=== PATIENT | female | born 1950 | race Caucasian/White ===

== ENCOUNTER 2016-11-08 00:10 | Observation (INO) ==
[2016-11-08] MEDS ORDERED: LABETALOL IV ONE (00:33)
[2016-11-08] MEDS ORDERED: ASPIRIN PO STA (00:33)
[2016-11-08 01:05] LABS: MANUAL DIFF NEEDED? NO
[2016-11-08 01:10] LABS: BASO% 0.1 % (0.0-0.8); EOS# 0.03 X1000 (0.0-0.7); EOS% 0.3 % (0.0-10.0); HEMATOCRIT 43.1 % (37.0-47.0); HEMOGLOBIN 14.8 g/dL (12.0-16.0); IMM GRAN# 0.02 X1000 (0.0-0.04); IMM GRAN% 0.2 % (0.0-0.5); LYMPH# 1.48 X1000 (1.2-3.4); MCH 27.5 PG (27-31); MCHC 34.3 g/dL (33-37); MCV 80.1 FL (81-99); MONO# 0.61 X1000 (0.11-0.59); MONO% 6.6 % (1.7-9.3); MPV 10.4 FL (7.4-10.4); NEUT% 76.8 % (42.2-75.2); PLT 235 X1000 (130-400); RBC 5.38 XMIL (4.2-5.4)
[2016-11-08 01:20] LABS: INR 0.98; PROTIME 10.3 Seconds (9.2-11.7); PTT 24.2 Seconds (22.0-36.0)
[2016-11-08] MEDS ORDERED: ZOFRAN IV ONE (01:22)
[2016-11-08] MEDS ORDERED: MORPHINE IV ONE (01:24)
[2016-11-08 01:53] LABS: AGAP 21; ALBUMIN 4.1 g/dL (3.5-5.0); ALKALINE PHOSPHATASE 122 U/L (32-104); BUN 14 mg/dL (8-22); CALCIUM 10.3 mg/dL (8.8-10.2); CHLORIDE 99 mmol/L (98-107); CK PROFILE 112 U/L (24-173); COSMO 287; GOT 17 U/L (10-30); GPT 14 U/L (10-36); MAGNESIUM 1.5 mg/dL (1.5-2.7); SODIUM 142 mmol/L (136-145); TCO2 22 mmol/L (25-35); TOTAL BILIRUBIN 0.41 mg/dL (0.20-1.00); TOTAL PROTEIN 6.5 g/dL (6.3-8.3)
[2016-11-08 01:57] LABS: URINE CULTURE NEEDED? NO; URINE MICRO REVIEW NEEDED? NO; URINE SOURCE CLEAN CATCH
[2016-11-08 02:01] LABS: BILIRUBIN URINE NEGATIVE (NEGATIVE); BLOOD URINE NEGATIVE (NEGATIVE); COLOR YELLOW; GLUCOSE URINE NEGATIVE (NEGATIVE); LEUKOCYTES URINE NEGATIVE (NEGATIVE); NITRITE URINE NEGATIVE (NEGATIVE); PROTEIN URINE NEGATIVE (NEGATIVE); SP GRAVITY URINE 1.007; TURBIDITY URINE CLEAR (CLEAR); UR EPITHELIAL CELLS <10 /HPF (<10); URINE BACTERIA NEGATIVE /HPF; URINE RBC <10 /HPF (<10); URINE WBC <10 /HPF (<10); UROBILINOGEN URINE NORMAL (NORMAL)
[2016-11-08 02:10] LABS: UR AMPHETAMINES QUAL NONE DETECTED (NONE DETECT); UR BARBITUATES QUAL NONE DETECTED (NONE DETECT); UR BENZODIAZEPIN QUAL NONE DETECTED (NONE DETECT); UR CANNABINOIDS QUAL NONE DETECTED (NONE DETECT); UR COCAINE QUAL NONE DETECTED (NONE DETECT); UR METHADONE QUAL NONE DETECTED (NONE DETECT); UR OPIATES QUAL NONE DETECTED (NONE DETECT); UR OXYCODONE QUAL NONE DETECTED (NONE DETECT); UR PCP QUAL NONE DETECTED (NONE DETECT)
[2016-11-08] MEDS ORDERED: G.I. COCKTAIL PO ONE (04:16)
[2016-11-08] MEDS ORDERED: PROTONIX IV ONE (04:16)
[2016-11-08] MEDS ORDERED: SODIUM CHLORIDE 0.9% INJ ONE ×2 (04:16→08:54)
--- NOTE | 2016-11-08 06:23 | PROVIDER DOCUMENTATION ---
This chart was entered by Harish Easley Scribe, acting as scribe for Guzman Hill MD. 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 Pt reports that she is unsure why she fell, but fell onto her left knee and then fell onto the floor. Pt denies any pain on exam, but states that she "just don' t feel right" and told her son that she needs to go to the doctor. Pt reports that she has felt "bad" for the past week and has been lying on her couch all week. Pt also complains of a chest pressure and bilateral plantar "feels funny" but cannot give details/specifications. 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 Location of Pain/Injury: reports: none Pain Radiation: reports: no radiation Quality of Pain: reports: none Severity: reports: mild Onset/Duration: reports: unsure, just prior to arrival Timing: reports: still present, resolved prior to arrival Associated Symptoms: reports: chest pain ("chest pressure"), fatigue, shortness of breath, vomiting (1 week ago). denies: cough, diaphoresis, diarrhea, fever/ chills, headaches, heartburn, loss of appetite, muscle aches, nausea, syncope, weakness, trouble walking Similar Symptoms Previously?: No Recently seen or treated by another doctor?: Yes Review of Systems - Adult - REVIEW OF SYSTEMS - ADULT Constitutional: denies: chills, fever, fatique, night sweats, weight gain, weight loss Eyes: reports: no symptoms reported Ears, Nose, Mouth & Throat: reports: no symptoms reported Cardiovascular: reports: chest pain ("chest pressure"). denies: irregular heart rate, palpitations, poor circulation, syncope Respiratory: reports: shortness of breath. denies: chronic cough, cough, dyspnea on exertion, excessive sputum production, hemoptysis, pleurisy, wheezing Gastrointestinal: reports: abdominal pain, diarrhea (1 week ago), vomiting (1 week ago). denies: hematemesis, constipation, difficulty swallowing, frequent heartburn, nausea, poor appetite Genitourinary: reports: no symptoms reported Musculoskeletal: denies: bone pain, back pain, frequent leg cramps, joint pain, joint swelling, muscle aches, muscle weakness, neck pain Integumentary: reports: no symptoms reported Neurological: reports: no symptoms reported Psychiatric: reports: no symptoms reported Endocrine: reports: no symptoms reported Hematologic/Lymphatic: reports: no symptoms reported Allergic/Immunologic: reports: no symptoms reported All Other Systems: Reviewed and Negative Past History - Adult - PAST MEDICAL HISTORY-ADULT Review of Records: reports: Nursing Assessment Review, Medications Reviewed Cardiovascular: reports: arrhythmia, HTN, heart valve problem (mitral valve prolapse), murmur - IMMUNIZATION STATUS Childhood Immunizations: See Nurse Assessment Flu Vaccine: See Nurse Assessment Physical Exam-General - PHYSICAL EXAM-ADULT Initial Vital Signs Reviewed: Yes - CONSTITUTIONAL General Appearance: appears well, alert, mild distress, obese, anxious - EYES Eyes: PERRL/EOMI, pink conjunctivae - HEAD, EARS, NOSE, MOUTH & THROAT HENMT: moist mucous membranes, pharynx normal - RESPIRATORY Respiratory: chest non-tender, lungs clear, normal breath sounds, no pleuratic chest pain, no respiratory distress, no accessory muscle use. negative: respiratory distress, decreased breath sounds, accessory muscle use, wheezing - CARDIOVASCULAR Cardiovascular: normal peripheral pulses, regular rate, rhythm, other (HTN (158/ 126)). negative: bradycardia, tachycardia, irregularly irregular - GASTROINTESTINAL (ABDOMEN) Abdominal Exam: normal bowel sounds, soft, no organomegaly, no pulsatile mass, tenderness (LLQ). negative: non tender, guarding, rebound - MUSCULOSKELETAL Back Exam: no CVA tenderness, no vertebral tenderness. negative: CVA tenderness , vertebral tenderness - PSYCHIATRIC Psych/Mental Status: normal mood/affect, normal thought content, normal thought process, oriented x 3, anxious Progress - PLAN OF CARE/RESULTS Progress/Plan/Lab Results: Vital Signs - 8 hr 06// 00:20 Temperature 98.2 F Pulse Rate 94 H Respiratory Rate 17 Blood Pressure 150/120 O2 Sat by Pulse Oximetry 100 Orders Category Date Time Status EKG [EKG] Stat Ther 11/08/16 00:09 Ordered Result Diagrams: 11/08/16 00:34 11/08/16 00:34 - EKG 1 Time of EKG reading by physician:: 00:32 EKG Read and Signed by:: Guzman Hill EKG Interpretation (*Must complete 3 of following elements*): Abnormal (L axis deviation; LBBB) Rate: 96 Rhythm: NSR - XRAY 1 XRAY: Bilateral XRAY Study: Chest Impression: See EMR Report XRAY Interpretation: No acute abnormality - Dr. Hill - CT/MRI 1 CT Study: Angiogram Impression: Abnormal (NO THORACIC DISSECTION, NO PE, has dilitation of distal esophagus with wall thickening) - CONSULTS/PCP/HOSPITALIST Notification #1 *Consult/PCP/Hospitalist*: [place] Time Discussed: 06:21 (will write all orders) Consult Disposition: Will see in ED, Admit Departure - Departure Date of Disposition Decision: 11/08/16 Time of Disposition Decision: 06:22 DIAGNOSIS: Esophagitis, Orthostasis, Hypotension, iatrogenic Disposition: ADMITTED INPATIENT 09 Certified Medical Emergency: Emergent Condition: Good Referrals and Follow-Ups: None,PCP [Primary Care Provider] - - Critical Care Note This patient required my direct & personal management of CC.: No This chart was documented by the indicated scribe, (Harish Easley Scribe) and accurately reflects the services I performed and decisions made by me, Guzman Hill MD, as attested by the provider's signature.
--- NOTE | 2016-11-08 06:40 | EKG Report ---
Test Performed on : 11/08/2016 00:17:07 AM Test Reason : cp Blood Pressure : / mmHG Vent. Rate : 096 BPM Atrial Rate : 096 BPM P-R Int : 176 ms QRS Dur : 148 ms QT Int : 416 ms P-R-T Axes : 000 -37 104 degrees QTc Int : 525 ms Normal sinus rhythm. Left axis deviation Left bundle branch block Abnormal ECG When compared with ECG of 26-FEB-2008 11:24, NH interval has decreased Left bundle branch block is now present Unconfirmed Result
--- NOTE | 2016-11-08 07:21 | Diag Imaging Result Doc PS360 ---
EXAM: CHEST-1 VIEW HISTORY: CP, SOB TECHNIQUE: Erect AP portable chest at 0055 COMMENT: There is no evidence of acute cardiac or pulmonary disease. There are no previous studies available for comparison. IMPRESSION: No acute disease. Electronically signed by Adalberto Jiménez 11/08/2016 7:18 AM
--- NOTE | 2016-11-08 07:42 | Diag Imaging Result Doc PS360 ---
EXAM: ANGIOGRAM/PULMONARY ARTERIES INDICATION: difficulty breathing, left arm swollen COMPARISON: None. FINDINGS: There is no evidence of pulmonary embolism. There is trace thoracic aortic atherosclerotic calcification. There is no evidence of aortic aneurysm or dissection. There is a tiny hiatal hernia. There are few calcified mediastinal and left hilar lymph nodes indicating prior granulomatous disease. There is no evidence of significant lymphadenopathy, otherwise. There are a few calcified granulomata in the left upper lobe. There are couple noncalcified nodules in the right lung that are subcentimeter in size. For reference, there is nodule on image 31 of series 5 that measures up to 5.3 mm in the right upper lobe, and there is another pleural-based nodule measuring up to 5 mm in the right middle lobe on image 82 of series 5. Statistically, these probably represent noncalcified granulomata. If clinically warranted, consider follow-up based on Fleischner Society criteria. There is mild subsegmental atelectasis and/or scarring at the lung bases. There is no pleural fluid collection and no pneumothorax. IMPRESSION: 1.Mild subsegmental atelectasis and/or scarring at the lung bases. 2.A couple small noncalcified nodules in the right lung as described. Please see above discussion. 3.No evidence of pulmonary embolism or other definite acute pathology. 4.Other incidental/nonacute findings detailed above. Electronically signed by Mg Lovett 11/08/2016 7:40 AM
[2016-11-08] MEDS ORDERED: NS 1,000 ML IV ONE (08:03)
[2016-11-08] MEDS ORDERED: NS 1,000 ML IV SCH (08:54)
[2016-11-08] MEDS ORDERED: ZOFRAN IV PRN (08:54)
--- NOTE | 2016-11-08 09:11 | Diag Imaging Result Doc PS360 ---
EXAM: HEAD W/O CONTRAST HISTORY: syncope TECHNIQUE: CT of the head without contrast COMMENT: There is no evidence of mass effect, bleed, or abnormal extra-axial fluid collection. The visualized paranasal sinuses are clear. There are no acute bony abnormalities. IMPRESSION: No acute intracranial disease. Electronically signed by Adalberto Jiménez 11/08/2016 9:08 AM
--- NOTE | 2016-11-08 09:32 | HISTORY AND PHYSICAL ---
PRIMARY CARE PHYSICIAN: Dr. Bob Garcia. CHIEF COMPLAINT: Syncope and chest pain. HISTORY OF PRESENT ILLNESS: Mrs. Cartagena is a 66-year-old female with a history of sleep apnea, hypertension, mitral valve prolapse, unknown arrhythmia, and GERD, who presents with a syncopal episode that happened last night. She reports that over the past week she has not been feeling well. She has been having epigastric pain and reflux symptoms and has been laying on the couch for almost a week. This has been associated with some mild nausea and a few episodes of emesis and diarrhea. She also reports epigastric pain that occasionally radiates to the left arm and is associated with shortness of breath and diaphoresis. Symptoms have been waxing and waning all week. Last night she got up from a lying position to turn off the lights in her kitchen when she had a syncopal episode. She reports it might have been 10 or 20 seconds from the time she got up to the time she passed out. She reports being unconscious for a minute and then coming to. This was unwitnessed. She crawled to the phone and called 911 and came to the ER. She denies any fevers or chills. No cough or congestion. There has been no lower extremity edema or orthopnea. She denies any visual disturbances, unilateral weakness, slurred speech, or confusion. She came to the ER for evaluation. In the ER she had labs done which showed an elevated D-dimer which prompted a CTA of the chest. The CTA of the chest was negative for PE or thoracic aortic aneurysm or dissection. There were some nonspecific granulomata and lymphadenopathy. The rest of her laboratory data is essentially unremarkable and her EKG shows sinus rhythm with a left bundle branch block. Currently, she is resting in bed comfortably without distress. She is awake alert and oriented and follows commands without focal deficits. We are now going to admit her for observation status for further treatment and evaluation. PAST MEDICAL HISTORY: 1. Arrhythmia of unknown specificity. 2. Mitral valve prolapse. 3. Heart murmur, [facility] [place]. 4. GERD. 5. Obstructive sleep apnea. 6. Hyperlipidemia. 7. Hypertension. 8. History of peptic ulcers, seen by Dr. Worley in the past. PAST SURGICAL HISTORY: She has had a left knee arthroplasty, hysterectomy, and vaginal sling. SOCIAL HISTORY: She is and lives alone. She has 3 children. She denies any history of tobacco, alcohol, or drug use. FAMILY HISTORY: Mother and grandmother from breast cancer. Father of unknown cause. REVIEW OF SYSTEMS: A 14 point review of systems obtained and found to be negative with the exception of the HPI. HOME MEDICATIONS: Currently being reconciled. PHYSICAL EXAMINATION: VITAL SIGNS: Blood pressure is 121/64, rate is 71, respiratory rate is 18, O2 saturation 94% on room air. Orthostatic vital signs: Blood pressure supine 117/68, blood pressure sitting 95/59, blood pressure standing 77/48. GENERAL: This is a pleasant, 66-year-old female, lying in hospital bed. No acute distress. NEUROLOGIC: The patient is awake and alert. She follows commands and has no focal deficits. Cranial nerves 2 through 12 are grossly intact. HEENT: Head is atraumatic, normocephalic. Her pupils are equal, round, and reactive to light. Oral mucosa is moist. Trachea is midline. There is no JVD or carotid bruits. CHEST: Clear to auscultation bilaterally. CV: Regular rate and rhythm. S1, S2 is noted. GI: Soft nondistended. Epigastric tenderness to palpation. Bowel sounds are hypoactive. EXTREMITIES: Without edema, clubbing, or cyanosis. Pulses are palpable bilaterally. DIAGNOSTIC DATA: Chest x-ray negative. CTA of the chest shows mild subsegmental atelectasis and/or scarring in the lung bases. Nonspecific, noncalcified nodules in the right lung. No PE or other definite acute pathology. EKG: Normal sinus rhythm, left bundle branch block. WBC 9.23, hemoglobin 14, hematocrit 43.1, platelet count is 235,000. INR 0.98. D-dimer 1.09. Sodium 142, potassium 4.0, chloride 99, CO2 22, anion gap 21, BUN 14, creatinine 0.9, glucose 152, calcium 10.3, magnesium 1.5, bilirubin 0.41, AST 17, ALT 14, alkaline phosphatase 122. CK 112. Troponin negative x2 sets. ProBNP 370. Albumin 4.1. UA is negative. Urine drug screen is negative. ASSESSMENT AND PLAN: 1. Syncope: This is likely secondary to orthostasis and volume depletion. We are going to check a head CT, carotid ultrasound, and echocardiogram. We will also continue trending her cardiac enzymes, add fluids, and withhold any antihypertensives. 2. Chest pain: Atypical in nature. Will trend enzymes and check an echocardiogram. Given the CTA findings of distal esophagitis it would seem that her symptoms are gastric in nature. We will make sure and add IV Protonix and have her follow with Dr. Worley on an outpatient basis as she is not bleeding and her hemoglobin and hematocrit are stable. 3. Hypertension: Antihypertensives will be placed on hold. Medications are currently being reconciled by the ER staff. 4. Arrhythmia of unknown specificity: Will obtain records from Dr. Santiago's office. 5. Deep vein thrombosis prophylaxis will be provided with Lovenox. Further recommendations to follow. Dictated by JUAN Tanner for Berenice Lowery MD cc: JUAN Tanner MD
[2016-11-08 09:42] LABS: HEMATOCRIT 39.4 % (37.0-47.0); HEMOGLOBIN 13.3 g/dL (12.0-16.0); MCH 27.4 PG (27-31); MCHC 33.8 g/dL (33-37); MCV 81.2 FL (81-99); RBC 4.85 XMIL (4.2-5.4)
[2016-11-08 10:02] LABS: HEMOGLOBIN A1C 5.7 % (4.8-6.0)
[2016-11-08 10:25] LABS: FREE T4 1.05 ng/dL (0.93-1.70)
[2016-11-08] MEDS: PROTONIX IV SCH (11:41)
[2016-11-08] MEDS: ASPIRIN PO SCH (11:41)
[2016-11-08] MEDS: SYNTHROID PO SCH (11:41)
[2016-11-08] MEDS ORDERED: TYLENOL PO PRN (15:22)
--- NOTE | 2016-11-08 15:32 | ECHO REPORT ---
ORDER DATE: 11/08/2016 INDICATIONS: Syncope. History of arrhythmia. Hypertension. Mitral valve prolapse. FINDINGS: 1. Right atrium appears normal in size. 2. Mild tricuspid regurgitation. The RV systolic pressure is 35. 3. Normal RV size and systolic function. 4. Trace pulmonic insufficiency. 5. Mild left atrial enlargement at 4.4 cm. 6. No mitral valve prolapse. Trace mitral regurgitation. 7. Normal LV size, end-diastolic dimension of 4.6. There is no evidence of left ventricular hypertrophy. Normal LV systolic function with an estimated EF of around 65%. 8. Aortic valve opens well. No evidence of stenosis or insufficiency. 9. Aorta appears normal in visualized segments. 10. No pericardial effusion is identified. cc: MD Berny Stone CRNP
--- NOTE | 2016-11-08 15:53 | CONSULTATION ---
DATE OF CONSULTATION: 11/08/2016 IMPRESSION: 1. Syncopal episode probably due to orthostatic hypotension. 2. Recent malaise, anorexia, nausea and some diarrhea for 4-5 days, probably viral gastroenteritis. 3. Paroxysmal atrial fibrillation, suppressed with flecainide. 4. Mitral valve disorder. 5. Obstructive sleep apnea. 6. Hyperlipidemia. RECOMMENDATIONS: 1. Agree with intravenous hydration. 2. Followup echocardiography which has already been requested. 3. 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 [place]. HISTORY: This 66-year-old white female, with past history of paroxysmal atrial fibrillation, mitral valve disorder, gastroesophageal reflux, obstructive sleep apnea and hyperlipidemia was admitted to emergency room last night after episode of syncope. She relates that she has been sick for 4-5 days with anorexia and nausea, some diarrhea and malaise. Oral intake has been significantly reduced Last night she was on the couch and got up to turn off the lights. As she got up and started walking, she started to feel weird and lightheaded. She subsequent passed out. She relates that her blood pressure was low when food vendor arrived. She has been started on intravenous fluids given suspicion of orthostatic hypotension. There has been no chest pain or dyspnea. There have been no palpitations. PAST MEDICAL HISTORY: 1. Paroxysmal atrial fibrillation suppressed with flecainide. 2. Mitral valve disorder. 3. Gastroesophageal reflux. 4. Obstructive sleep apnea. 5. Hyperlipidemia. 6. History of peptic ulcer disease. PAST SURGICAL HISTORY: Left knee arthroplasty, hysterectomy and vaginal sling procedure. MEDICATIONS PRIOR TO ADMISSION: As listed. It appears noteworthy she has been on low-dose metoprolol as well as flecainide. SOCIAL HISTORY: She is and lives alone. She does not smoke or use alcohol. FAMILY HISTORY: Negative for premature coronary disease. REVIEW OF SYSTEMS: Pulmonary: Negative. Gastrointestinal: Noteworthy for anorexia and nausea as well as some recent diarrhea. Constitutional: Noteworthy for recent malaise. Remainder of review of systems negative with 14 total systems reviewed. PHYSICAL EXAMINATION: General: This is an obese older white female in no distress. Vital Signs: As recorder are stable. HEENT: Extraocular movements intact. Mucous membranes are moist. Neck: Supple without jugular venous distention and no carotid bruits. Chest: Clear to auscultation. Cardiac: Reveals a regular rate and rhythm without appreciable murmur or gallop. Abdomen: Soft, nontender. Bowel sounds are normal. Extremities: Without edema. Neurologic: Reveals her to be alert and fully oriented. Speech is fluent. Moves all 4 extremities equally well. Skin: Warm and dry. Psychiatric: Exam reveals her mood to be appropriate. DIAGNOSTICS: Electrocardiogram demonstrates sinus rhythm, left axis deviation, left bundle branch block. cc: Ramone Guzmán MD
[2016-11-09] MEDS ORDERED: NORCO-5 PO ONE (00:02)
[2016-11-09] MEDS ORDERED: SODIUM CHLORIDE 0.9% 10 ML ONE (06:28)
[2016-11-09 07:02] LABS: AGAP 12; BUN 14 mg/dL (8-22); CALCIUM 8.6 mg/dL (8.8-10.2); CHLORIDE 104 mmol/L (98-107); COSMO 284; MAGNESIUM 1.9 mg/dL (1.5-2.7); POTASSIUM 4.2 mmol/L (3.5-5.1); SODIUM 142 mmol/L (136-145); TCO2 26 mmol/L (25-35)
[2016-11-09] MEDS: PROTONIX IV SCH (08:50)
[2016-11-09] MEDS: ASPIRIN PO SCH (08:50)
[2016-11-09] MEDS: SYNTHROID PO SCH (08:50)
[2016-11-09 15:45] VITALS: BP 148/82
[2016-11-10] MEDS ORDERED: SYNTHROID PO SCH (07:00)
--- NOTE | 2016-11-11 09:50 | Carotid Study ---
DATE: 11/08/2016 PROCEDURE: Carotid duplex imaging. REFERRING PHYSICIAN: Dr. Hill. INTERPRETING PHYSICIAN: Dino Villalobos MD. TECH: [place]. INDICATIONS: Syncope and dizziness. OBSERVED DATA RIGHT LEFT Brachial Blood Pressure Carotid Pulse Bruits: Carotid/Sub DIAGRAM OF ULTRASOUND IMAGING R L RIGHT INT EXT INT EXT LEFT Kiet (cm/s) Kiet (cm/s) Subclavian 106/0 Subclavian 117/1 CCA Proximal 61/9 CCA Proximal 86/16 CCA Distal 52/14 CCA Distal 49/17 Bulb 35/11 Bulb 40/11 ICA Proximal 46/19 ICA Proximal 44/13 ICA Mid 63/22 ICA Mid 57/21 ICA Distal 74/27 ICA Distal 82/27 ECA 47/8 ECA 39/8 Vertebral 61/24 Vertebral 35/11 ICA/CCA Ratio 1.2 ICA/CCA Ratio 0.9 % Stenosis 0-39 % Stenosis 0-39 FINDINGS: There is minimal atherosclerotic disease throughout both carotid systems. There are no ulcerations and no hemodynamically significant stenoses are present. There is antegrade vertebral flow bilaterally. INTERPRETATION: Mild plaque disease, as described above. cc: MD Berny Hahn CRNP
--- NOTE | 2016-11-23 12:02 | DISCHARGE SUMMARY ---
ADMISSION DATE: 11/08/2016 DISCHARGE DATE: 11/09/2016 FINAL DISCHARGE DIAGNOSES: 1. Syncope secondary to orthostatic hypotension. 2. Paroxysmal atrial fibrillation. 3. Obstructive sleep apnea. 4. Dyslipidemia. 5. Mitral valve prolapse. 6. History of peptic ulcer disease. CONSULTATIONS REQUESTED DURING THIS HOSPITAL STAY: Cardiology consultation with Dr. Guzmán. HOSPITAL COURSE: Ms. Cartagena is a 66-year-old female, who initially presented to the ER after having a syncopal episode as well as chest pain. The patient had a pulmonary arteriogram done in the ER that was noted to be negative for PE or thoracic aortic aneurysm. The patient was admitted to the hospitalist service and placed on telemetry. Serial cardiac enzymes were also obtained and Cardiology was consulted. A 2-dimensional echocardiogram was done that revealed an ejection fraction of 65%. The patient also had a carotid Doppler study done that was unremarkable. The patient was hydrated with IV fluids and had no further symptoms. The patient was cleared for discharge home on 11/09/2016. DISCHARGE MEDICATIONS: 1. Aricept 10 mg p.o. at bedtime. 2. Synthroid 112 mcg oral daily. 3. Namenda XR 10 mg p.o. twice a day. 4. Aspirin 81 mg p.o. daily. 5. Seroquel 300 mg p.o. at bedtime. 6. Flecainide 150 mg p.o. twice a day. 7. Multivitamin 1 tab oral daily. 8. Toprol-XL 50 mg p.o. daily. 9. Effexor XR 75 mg p.o. daily. DISCHARGE DIET: Low sodium cardiac diet. ACTIVITY: As tolerated. FOLLOWUP INSTRUCTIONS: The patient has been advised to follow up with Dr. Guzmán in 2 weeks. cc: Berenice Lowery MD
== END 2016-11-09 16:37 | disposition home or self-care (01) ==
LOC: 4N 00:10 → ED 00:10
PROVIDERS: ATTEND Internal Medicine